=== PATIENT | female | born 1990 | race Two or more races ===

== ENCOUNTER 2025-02-11 13:40 | Inpatient (IN) | payer OTHER, MEDICAID ==
[~2025-02-11] VITALS: Ht 157.5 cm; Wt 73.0 kg
[2025-02-11 14:36] LABS: Hematocrit 40.2 % (36.0-46.0); Hemoglobin 13.7 g/dL (12.2-16.2); Mean Corpuscular Hemoglobin 31.1 pg (28.0-32.0); Mean Corpuscular Volume 91.6 fL (80.0-100.0); Nucleated Red Blood Cells % 0.0 %
[2025-02-11 14:48] LABS: Chloride 99 mmol/L (98-107); Potassium 3.8 mmol/L (3.5-5.1); Sodium 138 mmol/L (136-145)
[2025-02-11 14:49] LABS: Anion Gap 11 (5-15); Calcium 9.7 mg/dL (8.7-10.4); Carbon Dioxide 28 mmol/L (20-31)
[2025-02-11 14:54] LABS: BUN/Creatinine Ratio 9.9 (10.0-20.0); Blood Urea Nitrogen 8 mg/dL (9-23); Glucose 106 mg/dL (74-106)
[2025-02-11] MEDS: SODIUM CHLORIDE 0.9% 500 ML IV ONE (15:26)
--- NOTE | 2025-02-11 15:44 | ED.PDOC ---
General HPI Comments 34-year-old female states that she was at work when she began to have sudden onset of left flank pain. Chief Complaint: Flank Pain Time Seen by MD: 13:54 Primary Care Provider: DENIES Allergies: Coded Allergies: NO KNOWN ALLERGIES (Unverified , 02/11/25) Mode of Arrival: Ambulatory Past Medical History PAST MEDICAL HISTORY: Thyroid Past Medical History (Other): PCOS, high blood pressure Surgical History (Other): Tummy tuck [employer] MANAGER History: Other Family History Family History: Unobtainable Social History Smoker: Non-Smoker Alcohol: Denies ETOH Use Drugs: Denies Drug Use Lives In: Home All Other Systems: Reviewed and Negative Physical Exam General Appearance: Moderate Distress HEENT: Normal ENT Inspection, Pharynx Normal, TMs Normal Neck: Full Range of Motion, Non-Tender, Normal, Normal Inspection Respiratory: Chest Non-Tender, Lungs Clear, No Accessory Muscle Use, No Respiratory Distress, Normal Breath Sounds Cardiovascular: No Edema, No JVD, No Murmur, No Gallop, Normal Peripheral Pulses, Regular Rate/Rhythm Breast Exam: Deferred Gastrointestinal: Other (Mild left CVA tenderness to palpation) Genitalia: Deferred Pelvic: Deferred Rectal: Deferred Extremities: No calf tenderness, Normal capillary refill, Normal inspection, Normal range of motion, Non-tender, No pedal edema Musculoskeletal : Apperance: Normal Neurologic: Alert, 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 Was a procedure done?: No Differential Diagnosis Kidney stone (Female): Pyelonephritis, Urinary obstruction, Urolithiasis Kidney stone (Male): N/A Penile/Scrotal: N/A Urinary Problem (Male): N/A Urinary Problem (Female): Pyelonephritis, UTI X-Ray, Labs, Meds, VS Vital Signs Date Time Temp Pulse Resp B/P (MAP) Pulse Ox O2 Delivery O2 Flow Rate FiO2 02/11/25 16:31 Room Air 0 02/11/25 16:31 Room Air* 0 21 02/11/25 16:31 98.7 106 18 179/113 (135) 98 98.7 02/11/25 16:23 106 18 179/113 02/11/25 13:42 97.8 98 18 162/105 95 97.8 Lab Test 02/11/25 15:39 02/11/25 15:07 02/11/25 14:17 Range/Units Urine Color Colorless Yellow Urine Clarity Clear Clear Urine pH 6.5 5.0-9.0 Urine Specific [place] 1.009 1.001-1.035 Urine Protein Negative Negative Urine Ketones 1+ H Negative Urine Blood Trace H Negative /uL Urine Nitrite Negative Negative Urine Bilirubin Negative Negative Urine Urobilinogen Normal Negative mg/dL Urine Leukocyte Esterase Negative Negative /uL Urine RBC 14 0 - 4 /hpf Urine Microscopic WBC 3 0-5 /HPF Urine Squamous Epithelial Cells Few <5 /hpf Urine Bacteria Few H None Seen /hpf Urine Glucose Normal Normal mg/dL Urine Test Negative Negative Lactic Acid Level 2.0 0.4-2.0 mmol/L White Blood Count 15.4 H 4.4-10.8 10^3/uL Red Blood Count 4.39 4.0-5.20 10^6/uL Hemoglobin 13.7 12.2-16.2 g/dL Hematocrit 40.2 36.0-46.0 % Mean Corpuscular Volume 91.6 80.0-100.0 fL Mean Corpuscular Hemoglobin 31.1 28.0-32.0 pg Mean Corpuscular Hemoglobin Concent 34.0 32.0-36.0 g/dL Red Cell Distribution Width 13.0 11.8-14.3 % Platelet Count 343 140-450 10^3/uL Mean Platelet Volume 8.4 6.9-10.8 fL Neutrophils (%) (Auto) 87.1 H 37.0-80.0 % Lymphocytes (%) (Auto) 8.7 L 10.0-50.0 % Monocytes (%) (Auto) 3.7 0.0-12.0 % Eosinophils (%) (Auto) 0.2 0.0-7.0 % Basophils (%) (Auto) 0.3 0.0-2.0 % Neutrophils # (Auto) 13.5 H 1.6-8.6 10 ^3/uL Lymphocytes # (Auto) 1.3 0.4-5.4 10 ^3/uL Monocytes # (Auto) 0.6 0-1.3 10 ^3/uL Eosinophils # (Auto) 0 0-0.8 10 ^3/uL Basophils # (Auto) 0 0-0.2 10 ^3/uL Nucleated Red Blood Cells 0.0 % Sodium Level 138 136-145 mmol/L Potassium Level 3.8 3.5-5.1 mmol/L Chloride Level 99 98-107 mmol/L Carbon Dioxide Level 28 20-31 mmol/L Anion Gap 11 5-15 Blood Urea Nitrogen 8 L 9-23 mg/dL Creatinine 0.81 0.550-1.02 mg/dL Glomerular Filtration Rate Calc 98 >90 mL/min BUN/Creatinine Ratio 9.9 L 10.0-20.0 Serum Glucose 106 74-106 mg/dL Calcium Level 9.7 8.7-10.4 mg/dL Current Medications Medications (Trade) Dose Ordered Sig/Carlee Route Start Time Stop Time Status Last Admin Sodium Chloride 500 ml @ 500 mls/hr Q1H ONCE IV 02/11/25 15:00 02/11/25 15:59 DC 02/11/25 15:26 Hydromorphone HCl (Dilaudid Injection) 0.5 mg ONCE ONCE IV 02/11/25 15:45 02/11/25 15:46 DC 02/11/25 16:23 Ondansetron HCl (Zofran) 4 mg ONCE ONCE IV 02/11/25 15:45 02/11/25 15:46 DC 02/11/25 16:23 34-year-old female presents here with left flank pain that began earlier today suddenly while at work. Patient states she has some mild discomfort when she pees but does not report burning when she pees. She states the pain got so bad she vomited several times. She was seen in urgent Care which did give her Toradol and she states it did help but the pain is significant at this time again. At this time consider possible kidney stone versus pyelonephritis. I have ordered a CBC, BMP, urinalysis, CT abdomen pelvis with IV contrast. Patient has been given NS as well as Zofran and Dilaudid here in the ER. CBC demonstrates a leukocytosis of 15.4. Urine with questionable UTI. However she does meet SIRS criteria and I have started her on Rocephin IV. Patient also has intractable pain in his required multiple doses of pain medications in the ER. CT abdomen pelvis has been ordered and is pending . Urine with some etelvina teria and no leuks. Plus one ketones However I believe patient would benefit from inpatient admission due to her leukocytosis and her intractable abdominal pain. I have contacted hospitalist team Time of 1ST Reevaluation: 15:42 Reevaluation 1ST: Unchanged Patient Education/Counseling: Diagnosis, Treatment Family Education/Counseling: No Family Present SEPSIS Sepsis Screen Date sepsis recognized/suspect: Feb 11, 2025 Time Sepsis recognized/suspect: 1343 Recent Procedure: No On Antibiotic Therapy: No Respiratory Rate >20: No Heart Rate >90: Yes Temp<36 C (96.8 F) or >38.3 C: No SBP <90 or MAP <65 mmHG: No New Acute Mental Status Change: No Is the patient on CPAP, BIPAP,: No Physician Orders Blood Culture (02/11/25 14:55) Ct Ab Pel Wo Con-No Oral Or Iv (02/11/25 15:36) Hydromorphone Injection (Dilaudid Inject (02/11/25 18:15) Ondansetron Hcl (Zofran) (02/11/25 18:15) Vital Signs Date Time Temp Pulse Resp B/P (MAP) Pulse Ox O2 Delivery O2 Flow Rate FiO2 02/11/25 16:31 Room Air 0 02/11/25 16:31 Room Air* 0 21 02/11/25 16:31 98.7 106 18 179/113 (135) 98 98.7 02/11/25 16:23 106 18 179/113 02/11/25 13:42 97.8 98 18 162/105 95 97.8 Laboratory Tests Test 02/11/25 14:17 02/11/25 15:07 White Blood Count 15.4 10^3/uL (4.4-10.8) H Lactic Acid Level 2.0 mmol/L (0.4-2.0) Medications Medications Dose Ordered Sig/Carlee Route Start Time Stop Time Status Last Admin Dose Admin Hydromorphone HCl 0.5 mg ONCE ONCE IV 02/11/25 15:45 02/11/25 15:46 DC 02/11/25 16:23 Ondansetron HCl 4 mg ONCE ONCE IV 02/11/25 15:45 02/11/25 15:46 DC 02/11/25 16:23 Sodium Chloride 500 ml @ 500 mls/hr Q1H ONCE IV 02/11/25 15:00 02/11/25 15:59 DC 02/11/25 15:26 Departure 1 Departure Time of Disposition: 18:11 Impression: Primary Impression: Flank pain Qualified Codes: R10.A2 - Flank pain, left side Additional Impression: Leukocytosis Qualified Codes: D72.829 - Elevated white blood cell count, unspecified Disposition: ADMITTED INPATIENT Condition: Fair Critical Care Note Critical Care Time?: No Stability Stability form required: No Heart Score Heart Score: Heart Score Response (Comments) Value History N/A 0 EKG N/A 0 Age N/A 0 Risk Factors N/A 0 Troponin N/A 0 Total 0 SHERMAN UGARTE MD Feb 11, 2025 15:44
[2025-02-11] MEDS: HYDROmorphone HCL 2 MG/ML VL/or syr IV ONE ×2 (16:23→20:07)
[2025-02-11] MEDS: ONDANSETRON HCL 4 MG/2 ML VIAL IV ONE ×2 (16:23→20:07)
[2025-02-11 17:58] LABS: Urine Protein, UAD Negative (Negative)
--- NOTE | 2025-02-11 18:59 | DVH ---
Exam: CT CT AB PEL WO CON-NO ORAL OR IV History: ro kidney stone Comparison Study: None TECHNIQUE: Multidetector CT of the abdomen and pelvis was performed from lung bases to pubic symphysis. Imaging was performed without IV contrast. Axial, coronal, and sagittal multiplanar reformats were obtained from the axial data set by the technologist. RADIATION DOSE: CTDI vol 12.3 mGy. DLP 679.66 mGy.cm Findings: Limited evaluation of the solid organs in the absence of IV contrast. Lungs: The lung bases are clear. Liver: Diffuse hypoattenuation of the liver suggestive of hepatic steatosis. Spleen: Unremarkable. Pancreas: Unremarkable. Gallbladder: Cholelithiasis. Adrenals: Unremarkable Kidneys: 4 mm calculus situated within the distal left ureter with mild upstream hydroureteronephrosis. Mild left perinephric stranding. Bilateral nonobstructing renal calculi. Pelvic Viscera: 3.2 cm left adnexal cyst. Vasculature: Unremarkable. Retroperitoneum: Unremarkable. Bowel: No bowel obstruction. The appendix is normal. Musculoskeletal: Unremarkable. Soft tissues: Unremarkable Impression: 1. 4 mm calculus situated within the distal left ureter with mild upstream hydroureteronephrosis. Mild left perinephric stranding. 2. Additional bilateral nonobstructing renal calculi. 3. Additional findings as detailed.
--- NOTE | 2025-02-11 20:35 | DVHHPRES ---
History of Present Illness Resident Creating Document: GABRIEL FLANNERY RESIDENT History of Present Illness 34-year-old female with past medical history of PCOS, hypothyroidism, high blood pressure presented in the ED with complaints of left flank pain since morning. Patient mentioned associated nausea and vomiting. She also mentioned chills. Patient described pain as severe, radiating to the left lower abdomen, relieved with pain medication. Past medical history PCOS, hypothyroidism, high blood pressure Past surgical history No recent surgery Family history Hypertension Diabetes Medication history Levophed thyroxine Hydrochlorothiazide OCP Allergic history No known allergies Social history Denied smoking, marijuana, alcohol Review of Systems Review of Systems As described in the HPI Allergies: Coded Allergies: NO KNOWN ALLERGIES (Unverified , 02/11/25) Exam Vital Signs Vital Signs Date Time Temp Pulse Resp B/P (MAP) Pulse Ox O2 Delivery O2 Flow Rate FiO2 02/11/25 20:16 100 16 161/97 02/11/25 20:15 98.2 98 98.2 02/11/25 16:31 Room Air 0 02/11/25 16:31 21 Exam Examination General Appearance: Alert, Oriented X3, Cooperative, No acute distress HEENT: EOMI Respiratory: Clear to auscultation, Normal air movement Cardiovascular: Regular rate, Normal S1, Normal S2 Abdominal: Normal bowel sounds, left flank tenderness Extremities: No cyanosis, No edema, Normal pulses, No tenderness/swelling Skin: No rashes, No breakdown Neuro: Normal speech and tone Labs/Xrays Labs Test 02/11/25 15:39 02/11/25 15:07 02/11/25 14:17 Range/Units Urine Color Colorless Yellow Urine Clarity Clear Clear Urine pH 6.5 5.0-9.0 Urine Specific [place] 1.009 1.001-1.035 Urine Protein Negative Negative Urine Ketones 1+ H Negative Urine Blood Trace H Negative /uL Urine Nitrite Negative Negative Urine Bilirubin Negative Negative Urine Urobilinogen Normal Negative mg/dL Urine Leukocyte Esterase Negative Negative /uL Urine RBC 14 0 - 4 /hpf Urine Microscopic WBC 3 0-5 /HPF Urine Squamous Epithelial Cells Few <5 /hpf Urine Bacteria Few H None Seen /hpf Urine Glucose Normal Normal mg/dL Urine Test Negative Negative Lactic Acid Level 2.0 0.4-2.0 mmol/L White Blood Count 15.4 H 4.4-10.8 10^3/uL Red Blood Count 4.39 4.0-5.20 10^6/uL Hemoglobin 13.7 12.2-16.2 g/dL Hematocrit 40.2 36.0-46.0 % Mean Corpuscular Volume 91.6 80.0-100.0 fL Mean Corpuscular Hemoglobin 31.1 28.0-32.0 pg Mean Corpuscular Hemoglobin Concent 34.0 32.0-36.0 g/dL Red Cell Distribution Width 13.0 11.8-14.3 % Platelet Count 343 140-450 10^3/uL Mean Platelet Volume 8.4 6.9-10.8 fL Neutrophils (%) (Auto) 87.1 H 37.0-80.0 % Lymphocytes (%) (Auto) 8.7 L 10.0-50.0 % Monocytes (%) (Auto) 3.7 0.0-12.0 % Eosinophils (%) (Auto) 0.2 0.0-7.0 % Basophils (%) (Auto) 0.3 0.0-2.0 % Neutrophils # (Auto) 13.5 H 1.6-8.6 10 ^3/uL Lymphocytes # (Auto) 1.3 0.4-5.4 10 ^3/uL Monocytes # (Auto) 0.6 0-1.3 10 ^3/uL Eosinophils # (Auto) 0 0-0.8 10 ^3/uL Basophils # (Auto) 0 0-0.2 10 ^3/uL Nucleated Red Blood Cells 0.0 % Sodium Level 138 136-145 mmol/L Potassium Level 3.8 3.5-5.1 mmol/L Chloride Level 99 98-107 mmol/L Carbon Dioxide Level 28 20-31 mmol/L Anion Gap 11 5-15 Blood Urea Nitrogen 8 L 9-23 mg/dL Creatinine 0.81 0.550-1.02 mg/dL Glomerular Filtration Rate Calc 98 >90 mL/min BUN/Creatinine Ratio 9.9 L 10.0-20.0 Serum Glucose 106 74-106 mg/dL Calcium Level 9.7 8.7-10.4 mg/dL SEPSIS Sepsis Screen Date sepsis recognized/suspect: Feb 11, 2025 Time Sepsis recognized/suspect: 1640 Recent Procedure: No On Antibiotic Therapy: No Respiratory Rate >20: No Heart Rate >90: Yes Temp<36 C (96.8 F) or >38.3 C: No SBP <90 or MAP <65 mmHG: No New Acute Mental Status Change: No Is the patient on CPAP, BIPAP,: No Physician Orders Blood Culture (02/11/25 14:55) Ct Ab Pel Wo Con-No Oral Or Iv (02/11/25 15:36) Admit (02/11/25 19:08) Oxygen By Nasal Cannula (02/11/25 19:08) Stat Ekg For Chest Pain (02/11/25 19:08) Notify Of Changes From Base (02/11/25 19:08) Bulkhead Carpenter For 24 Hours (02/11/25 19:08) Emergency Dysrhythmia Protocol (02/11/25 19:08) Rhythm Strips Once Every Shift (02/11/25 19:08) Acetaminophen Tablet (Tylenol Tablet) (02/12/25 00:00) Morphine Sulfate Injection (02/11/25 20:45) Vital Signs Date Time Temp Pulse Resp B/P (MAP) Pulse Ox O2 Delivery O2 Flow Rate FiO2 02/11/25 20:16 100 16 161/97 02/11/25 20:15 98.2 100 16 161/97 (118) 98 98.2 02/11/25 16:31 Room Air 0 02/11/25 16:31 Room Air* 0 21 02/11/25 16:31 98.7 106 18 179/113 (135) 98 98.7 02/11/25 16:23 106 18 179/113 02/11/25 13:42 97.8 98 18 162/105 95 97.8 Laboratory Tests Test 02/11/25 14:17 02/11/25 15:07 White Blood Count 15.4 10^3/uL (4.4-10.8) H Lactic Acid Level 2.0 mmol/L (0.4-2.0) Medications Medications Dose Ordered Sig/Carlee Route Start Time Stop Time Status Last Admin Dose Admin Ceftriaxone Sodium 50 ml @ 100 mls/hr ONCE ONCE IV 02/11/25 18:30 02/11/25 18:59 DC 02/11/25 20:20 100 MLS/HR Hydromorphone HCl 0.5 mg ONCE ONCE IV 02/11/25 15:45 02/11/25 15:46 DC 02/11/25 16:23 0.5 MG Ondansetron HCl 4 mg ONCE ONCE IV 02/11/25 15:45 02/11/25 15:46 DC 02/11/25 16:23 4 MG Sodium Chloride 500 ml @ 500 mls/hr Q1H ONCE IV 02/11/25 15:00 02/11/25 15:59 DC 02/11/25 15:26 500 MLS/HR Assessment/Plan Assessment/Plan Assessment/plan # ureterolithiasis IV fluids Flomax # UTI IV fluids IV antibiotics # hypothyroidism Resume home meds # hypertension Resume home meds #PCOS Code status discussed with the patient for greater than 21 minutes, Full code Case discussion with Dr. Hunter Plan discussed with: Patient, Other My Orders Orders - GABRIEL FLANNERY Procedure Category Date Status Time Admit ADMIT 02/11/25 Transmitted 19:08 Oxygen By Nasal RT 02/11/25 Transmitted Cannula 19:08 Stat Ekg For Chest [facility] 02/11/25 In Process Pain 19:08 Notify Md Of Changes [facility] 02/11/25 In Process From Base 19:08 Bulkhead Carpenter For [facility] 02/11/25 In Process 24 Hours 19:08 Emergency Dysrhythmia [facility] 02/11/25 In Process Protocol 19:08 Rhythm Strips Once [facility] 02/11/25 In Process Every Shift 19:08 Acetaminophen Tablet [facility] 02/12/25 Verified (Tylenol Tablet) 00:00 Morphine Sulfate [facility] 02/11/25 Verified Injection 20:45 Visit Coding STANDARD RES Billing Provider: SEN HUNTER MD Date of Service if different f: Feb 11, 2025 Common Visit Codes: [id number] INP/OBS CARE (HIGH) Secondary Visit Codes: [id number] CARE PLAN 30 MINUTES GABRIEL FLANNERY Feb 11, 2025 20:35
[2025-02-11] MEDS ORDERED: MORPHINE SULFATE INJ 2 MG/ml SYRG IV PRN (20:45)
[2025-02-11] MEDS: SODIUM CHLORIDE 0.9% 1,000 ML IV SCH (20:45)
[2025-02-11] MEDS: TAMSULOSIN HYDROCHLORIDE 0.4 MG CAP PO ONE (21:20)
[2025-02-12] MEDS: ACETAMINOPHEN 325 MG TAB PO SCH (00:22)
[2025-02-12 02:47] VITALS: BP 137/80; PULSE 83; PULSE 87; RESP 16; RESP 18; TEMP 98.2; O2SAT 94; O2SAT 97
[2025-02-12] MEDS ORDERED: NORG1TAB PO (02:56)
[2025-02-12] MEDS ORDERED: LEVO-848 PO (02:56)
[2025-02-12] MEDS ORDERED: HYDR25TA5 PO (02:56)
[2025-02-12 03:17] LABS: Hematocrit 42.0 % (36.0-46.0); Hemoglobin 14.0 g/dL (12.2-16.2); Mean Corpuscular Hemoglobin 30.6 pg (28.0-32.0); Mean Corpuscular Volume 91.3 fL (80.0-100.0); Nucleated Red Blood Cells % 0.0 %
[2025-02-12 03:37] LABS: Albumin 4.7 g/dL (3.2-4.8); Alkaline Phosphatase 75 U/L (46-116); Anion Gap 13 (5-15); BUN/Creatinine Ratio 9.2 (10.0-20.0); Calcium 9.5 mg/dL (8.7-10.4); Carbon Dioxide 26 mmol/L (20-31); Magnesium 2.0 mg/dL (1.6-2.6); Potassium 3.6 mmol/L (3.5-5.1); Sodium 136 mmol/L (136-145); Total Protein 7.8 g/dL (5.7-8.2)
[2025-02-12 03:38] LABS: Bilirubin, Total 0.8 mg/dL (0.2-1.0)
[2025-02-12 03:41] LABS: Alanine Aminotransferase 49 U/L (7-40); Blood Urea Nitrogen 8 mg/dL (9-23); Chloride 97 mmol/L (98-107); Glucose 116 mg/dL (74-106)
[2025-02-12] MEDS: LABETALOL HCL 20 MG/4 ML VL IV ONE (04:27)
[2025-02-12 09:00] VITALS: BP 131/86; PULSE 97; RESP 20; TEMP 98.5; O2SAT 97
[2025-02-12] MEDS: hydroCHLOROthiazide 25 MG TAB PO SCH (09:45)
[2025-02-12] MEDS: MORPHINE SULFATE 4 MG/ML SYR/VIAL IV PRN (10:15)
[2025-02-12 13:00] VITALS: BP_SYST 131; BP_DIAS 38; BP_DIAS 83; PULSE 86; RESP 20; TEMP 98.6; O2SAT 97
[2025-02-12] MEDS ORDERED: TAMS-35 PO (13:54)
[2025-02-12] MEDS ORDERED: HYDR-4902 PO ×2 (13:54→17:42)
[2025-02-12] MEDS ORDERED: CIPR500T4 PO (13:54)
[2025-02-12] MEDS ORDERED: TAMSULOSIN HYDROCHLORIDE 0.4 MG CAP PO SCH (18:00)
== END 2025-02-12 17:50 | disposition home or self-care (01) | DRG 690 ==
LOC: ER 13:40 → OVERFLOW 19:08
PROVIDERS: ADMIT Student in an Organized Health Care Education/Training Program; ATTEND Emergency Medicine
DX: N39.0 Urinary tract infection, site not specified (principal); N20.1 Calculus of ureter; E03.9 Hypothyroidism, unspecified; I10 Essential (primary) hypertension; E28.2 Polycystic ovarian syndrome; Z82.49 Family history of ischemic heart disease and other diseases of the circulatory system; Z83.3 Family history of diabetes mellitus
CPT/HCPCS: 36415; 74176; 80048; 80053; 81001; 81025; 83605; 83735; 85025; 87040; 87086; G0378; J2405